=== PATIENT | female | born 2000 ===

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

== ENCOUNTER 2021-08-01 19:24 | Outpatient (CLI) | payer SELFPAY ==
[2021-08-01] MEDS ORDERED: LACTATED RINGERS 1,000 ML IV ONE (20:16)
[2021-08-01 21:14] LABS: Basophils % (Auto) 0.3 % (0.0-1.8); Eosinophils # (Auto) 0.1 K/mm3 (0.0-0.4); Hematocrit 33.1 % (30.3-42.9); Hemoglobin 11.3 gm/dl (10.1-14.3); Lymphocytes # (Auto) 1.8 K/mm3 (1.2-5.4); Lymphocytes % (Auto) 14.8 % (13.4-35.0); Mean Corpuscular HGB Conc 34 % (30-34); Mean Corpuscular Volume 86 fl (79-97); Monocytes # (Auto) 0.5 K/mm3 (0.0-0.8); Monocytes % (Auto) 4.2 % (0.0-7.3); Platelet Count 269 K/mm3 (140-440); Red Blood Count 3.85 M/mm3 (3.65-5.03); Red Cell Distribution Width 16.8 % (13.2-15.2)
[2021-08-01 21:31] LABS: Alanine Aminotransferase 7 units/L (7-56); Albumin 3.8 g/dL (3.9-5); Blood Urea Nitrogen 8 mg/dL (7-17); Calcium 9.4 mg/dL (8.4-10.2); Hemolysis Index 3
[2021-08-01 21:45] LABS: BUN/Creatinine Ratio 20; Bilirubin,Urine NEG (Negative); Blood,Urine NEG (Negative); Color,Urine Yellow (Yellow); Protein,Urine <15 mg/dL mg/dL (Negative); Urobilinogen,Urine < 2.0 mg/dL (<2.0)
--- NOTE | 2021-08-01 23:33 | Ultrasound Report ---
ULTRASOUND OBSTETRIC LIMITED ULTRASOUND BIOPHYSICAL PROFILE INDICATION / CLINICAL INFORMATION: Evaluate well-being. COMPARISON: None available. FINDINGS: BREATHING MOVEMENT = 2 GROSS BODY MOVEMENT = 2 TONE = 2 QUALITATIVE AMNIOTIC FLUID VOLUME = 2 TOTAL BIOPHYSICAL SCORE = 8/8 AMNIOTIC FLUID INDEX (cm) = 8.6 PRESENTATION: Cephalic. HEART RATE (beats per minute): 133 ADDITIONAL FINDINGS: None. IMPRESSION: 1. Biophysical Score = 8/8 2. No significant abnormality. Signer Name: Liu Smith MD Signed: 08/01/2021 11:29 PM Workstation Name: [id number]
[2021-08-01 23:51] VITALS: BP 121/58
== END 2021-08-02 00:07 | disposition home or self-care (01) ==
LOC: TRG 19:24 → APU 19:27 → TRG 08-02 00:07
PROVIDERS: ATTEND Obstetrics & Gynecology
DX: O26.893 Other specified pregnancy related conditions, third trimester (principal); R51.9 Headache, unspecified; H53.8 Other visual disturbances; O99.513 Diseases of the respiratory system complicating pregnancy, third trimester; J45.909 Unspecified asthma, uncomplicated; Z3A.34 34 weeks gestation of pregnancy
CPT/HCPCS: 36415; 59025; 76816; 76819; 80053; 81001; 83615; 84550; 85025; 96360; J7120; 76815

== ENCOUNTER 2021-08-14 02:31 | Inpatient (IN) | payer SELFPAY ==
[2021-08-14] MEDS ORDERED: CARBOPROST TROMETHAMINE 250 MCG/1 ML INJ IM PRN (03:30)
[2021-08-14] MEDS ORDERED: METHYLERGONOVINE MALEATE 0.2 MG/ML VIAL IM PRN (03:30)
[2021-08-14] MEDS ORDERED: BUTORPHANOL 2 MG/1 ML INJ IV PRN (03:30)
[2021-08-14] MEDS ORDERED: ePHEDrine SULFATE 50 MG/1 ML INJ IV PRN ×2 (03:30→08:30)
[2021-08-14] MEDS ORDERED: fentaNYL 100 MCG/2 ML INJ IV PRN (03:30)
[2021-08-14] MEDS ORDERED: ACETAMINOPHEN 325 MG TAB PO PRN (03:30)
[2021-08-14] MEDS ORDERED: TERBUTALINE 1 MG/1 ML INJ SUB-Q PRN (03:30)
[2021-08-14] MEDS ORDERED: LACTATED RINGERS 1,000 ML IV SCH (03:30)
[2021-08-14] MEDS ORDERED: miSOPROStol 25 MCG TAB PO SCH (04:00)
[2021-08-14 04:52] LABS: Hematocrit 37.1 % (30.3-42.9); Mean Corpuscular HGB Conc 33 % (30-34); Mean Corpuscular Volume 86 fl (79-97); Platelet Count 343 K/mm3 (140-440); Red Blood Count 4.32 M/mm3 (3.65-5.03); Red Cell Distribution Width 16.6 % (13.2-15.2)
--- NOTE | 2021-08-14 05:50 | Ultrasound Report ---
US OB BPP wo non-stress, US OB follow up INDICATION / CLINICAL INFORMATION: Post due date, Abdominal pain COMPARISON: Limited OB ultrasound 11/01/2021 TECHNIQUE: Using a transcutaneous probe, multiple grayscale, color Doppler, and spectral Doppler imag es of the uterus and fetus were captured and stored. Additional biophysical profile was performed wit h measurement of multiple biophysical variables including respiratory motion, motion, fet al posturing tone, and qualitative amniotic fluid volume. FINDINGS: BREATHING MOVEMENT = 0 GROSS BODY MOVEMENT = 2 TONE = 0 QUALITATIVE AMNIOTIC FLUID VOLUME = 2 TOTAL BIOPHYSICAL SCORE = 4/8 Single cephalic fetus with heart rate of 125 bpm is demonstrated. The amniotic fluid is within normal limits at 520.5 cm. Posterior grade 2 placenta is demonstrated. Biparietal Diameter = 8.69 cm = 35, 1 weeks, days Head Circumference = 33.09 cm = 37, 5 weeks, days Abdominal Circumference = 36.37 cm = 40, 2 weeks, days Femur Length = 7.46 cm = 38, 1 weeks, days Average Ultrasound Age (AUA) = 37, 6 weeks, days. EDC 08/29/2021. Clinical estimated gestational age is 40 weeks 2 days, EDC 08/12/2021. Estimated weight = 3606 g, 45% growth percentile.. IMPRESSION: 1 Single living fetus as detailed. 2. biophysical profile score of 4/8. Signer Name: Angel Carreon II, MD Signed: 08/14/2021 5:46 AM Workstation Name: [id number]
[2021-08-14] MEDS: OXYTOCIN DRIP 30 UNITS/500 ML BAG IV SCH ×2 (06:50→22:18)
--- NOTE | 2021-08-14 07:03 | History and Physical Report ---
History of Present Illness Date of examination: 08/14/21 Date of admission: 08/14/21 03:37 Chief complaint: Contractions History of present illness: 21-year-old primigravida at 40-2/7 weeks gestation presents OB triage reporting regular and painful uterine contractions occurring every 5 minutes. There is no vaginal bleeding. There is no leakage of fluid. There is good movement. In OB triage, cervical exam was 4 cm dilated. As such, this patient was admitted to labor and delivery in early labor. Past History Past Medical History: asthma, other (Rubella nonimmune) Past Surgical History: no surgical history Family/Genetic History: other (Thyroid disorder, asthma) Social history: no significant social history - Obstetrical History Expected Date of Delivery: 08/12/21 Actual Gestation: 40 Week(s) 2 Day(s) : 1 Para: 0 Medications and Allergies Allergies Allergy/AdvReac Type Severity Reaction Status Date / Time No Known Allergies Allergy Unverified 06/18/18 22:16 Home Medications Medication Instructions Recorded Confirmed Last Taken Type Doxylamine Succinate/Vit B6 1 each PO QHS PRN #30 tablet.dr 12/23/20 Unknown Rx [Beth Dr 10-10 mg Tablet] Mary Root [Mary] 250 mg PO QID PRN #30 capsule 12/23/20 Unknown Rx Multivitamin with Folic Acid [[facility] 400 mcg PO QDAY #30 tablet 12/23/20 Unknown Rx One Daily Essential Tablet] Active Meds: Active Medications Acetaminophen (Acetaminophen 325 Mg Tab) 650 mg PO Q4H PRN PRN Reason: Pain, Mild (1-3) Butorphanol Tartrate (Butorphanol 2 Mg/1 Ml Inj) 1 mg IV Q2H PRN PRN Reason: Pain, Moderate(4-6) LABOR PAIN Carboprost Tromethamine (Carboprost Tromethamine 250 Mcg/1 Ml Inj) 250 mcg IM ONCE PRN PRN Reason: Uterine Bleeding Ephedrine Sulfate (Ephedrine Sulfate 50 Mg/1 Ml Inj) 10 mg IV Q2M PRN PRN Reason: Hypotension Fentanyl (Fentanyl 100 Mcg/2 Ml Inj) 100 mcg IV Q2H PRN PRN Reason: Pain,Severe (7-10) LABOR PAIN Lactated Ringer's (Lactated Ringers) 1,000 mls @ 125 mls/hr IV DIRECT MARIO Last Admin: 08/14/21 06:04 Dose: 999 mls/hr Oxytocin/Sodium Chloride (Pitocin/Ns 30 Unit/500ml) 30 units in 500 mls @ 40 mls/hr IV TITR MARIO; Protocol Last Admin: 08/14/21 06:50 Dose: 2 ml/hr, 2 mls/hr Methylergonovine Maleate (Methylergonovine Maleate 0.2 Mg/Ml Vial) 0.2 mg IM ONCE PRN PRN Reason: Uterine Bleeding Terbutaline Sulfate (Terbutaline 1 Mg/1 Ml Inj) 0.25 mg SUB-Q ONCE PRN PRN Reason: Hyperstimulation/Hypertonicity Review of Systems All systems: negative - Vital Signs Vital signs: Vital Signs Pulse Pulse Ox 102 H 98 08/14/21 02:52 08/14/21 02:52 Temp Pulse Resp BP Pulse Ox 98.3 F 93 H 112/65 97 08/14/21 06:37 08/14/21 06:56 08/14/21 06:44 08/14/21 06:56 - Physical Exam Breasts: Positive: normal Cardiovascular: Regular rate Lungs: Positive: Normal air movement Abdomen: Positive: normal appearance Genitourinary (Female): Positive: normal external genitalia, normal perenium Vulva: both: normal Vagina: Positive: normal moisture Uterus: Positive: enlarged Adnexa: both: normal Anus/Rectum: Positive: normal perianal skin Extremities: Positive: normal Deep Tendon Reflex Grade: Normal +2 - Obstetrical FHR: category 1 Uterine Contraction Monitor Mode: External Cervical Dilatation: 4 Cervical Effacement Percentage: 80 station: -1 Uterine Contraction Frequency (min): 5 Uterine Contraction Pattern: Regular Uterine Tone Measurement Phase: Contraction Uterine Contraction Intensity: Moderate Results Result Diagrams: 08/14/21 04:16 Abnormal lab results 08/14/21 Range/Units 04:16 WBC 12.4 H (4.5-11.0) K/mm3 RDW 16.6 H (13.2-15.2) % All other labs normal. Ultrasound: report reviewed (BPP= 06/20 (-2 Breathing, -2 Tone)), image reviewed (OB Ultrasound Limited= SLIUP. Vertex. Posterior placenta. EFW= 3606 g (45th %-ile). RYAN=20.5.) Assessment and Plan - Patient Problems (1) 40 weeks gestation of Current Visit: Yes Status: Acute Plan to address problem: care is up-to-date at [facility] . 1 hour glucose tolerance test is within normal limits. She is GBS negative. (2) Postmaturity , 40-42 weeks gestation Current Visit: Yes Status: Acute Plan to address problem: The patient is past her due date. Biophysical profile is 4/8. Plan is to augment labor. (3) Spontaneous onset of labor Current Visit: Yes Status: Acute Plan to address problem: Admit to labor and delivery. Augment with artificial rupture membranes and Pitocin. Epidural as needed. Anticipate normal spontaneous vaginal delivery. (4) Asthma affecting in third trimester Current Visit: Yes Status: Acute Plan to address problem: No Hemabate .
[2021-08-14] MEDS ORDERED: fentaNYL-BUPIV 2 MCG/ML-0.125% 200 MCG/100 ML BAG EPIDURAL SCH (07:30)
[2021-08-14] MEDS ORDERED: fentaNYL-BUPIV 2 MCG/ML-0.125% 200 MCG/100 ML BAG EPIDURAL ONE (07:32)
--- NOTE | 2021-08-14 07:41 | Anesthesia Consultation ---
Anesthesia Consult and Med Hx Date of service: 08/14/21 - Airway Anesthetic Teeth Evaluation: Good ROM Head & Neck: Adequate Mental/Hyoid Distance: Adequate Mallampati Class: Class II Intubation Access Assessment: Probably Good - Pre-Operative Health Status ASA Pre-Surgery Classification: ASA2 Proposed Anesthetic Plan: Epidural, Spinal - Pulmonary Hx Asthma: Yes COPD: No Hx Pneumonia: No - Cardiovascular System Hx Hypertension: No - Central Nervous System Hx Seizures: No Hx Psychiatric Problems: No - Endocrine Hx Renal Disease: No Hx End Stage Renal Disease: No Hx Hypothyroidism: No Hx Hyperthyroidism: No - Hematic Hx Anemia: No Hx Sickle Cell Disease: No - Other Systems Hx Alcohol Use: No
--- NOTE | 2021-08-14 07:58 | Progress Note ---
Labor Epidural - Labor Epidural Start Time: 07:10 Stop Time: 07:28 Performed by:: ANTONIO WARE Procedure: Patient is requesting epidural for labor and pain. H&P, labs were reviewed. Patient IDed, all questions and concerns were answered, and consent was signed. Timeout was performed at bedside. Patient in sitting position. Sterile prep and drape was performed. 3ml of 1% lidocaine skin wheal at L[3]- L [4]. 17- gauge Tuohy epidural needle was advanced to loss of resistance with saline technique cm. 25G spinal needle introduced through epidural needle to the spinal space. Clear CSF. injected .1ml of Precedex in the spinal space. Negative CSF negative blood. Epidural catheter advanced to [15] centimeters. [Negative] Aspiration, test dose 3cc 1.5% Lidocaine with epi - negative. Sterile dressing applied. Patient tolerated procedure.
[2021-08-14] MEDS ORDERED: NALOXONE 0.4 MG/1 ML INJ IV PRN (08:30)
--- NOTE | 2021-08-14 11:31 | Event Note ---
Date: 08/14/21 pt evaluated and comfortable and asleep with epidural. Pt is easily FHR category I. Pelvic 5/8-/-2 and FSE not working per nurse report. The external FHR monitor effective and I will hold on replacing FSE at this time. IUPC with inadequate contractions. Hopeful for vaginal delivery.
--- NOTE | 2021-08-14 16:32 | Event Note ---
Date: 08/14/21 FOB came to desk stating pt feeling a lot pelvic pressure and wants to push. Pelvic 9.5/100/-1 and bloody mucoid discharge seen. IUPC remains with clear fluid. Will restart pitocin that was turned off for a short time. FHR remains with category I FHR. Expect
[2021-08-14] MEDS ORDERED: MINERAL OIL 30 ML ORAL LIQD ONE (17:22)
[2021-08-14] MEDS ORDERED: LIDOCAINE MPF (2%) 20 MG/1 ML VIAL 5 ML ONE (19:11)
--- NOTE | 2021-08-14 21:44 | Event Note ---
Date: 08/14/21 nurse called me to evaluate pt at 8:20pm who was allowed to labor down. Pt stating she felt the baby was right there and could not hold it in anymore, she was allowed to push however pelvic unchanged. Sign out given to Dr. Schulz earlier and he will decide for treatment plan for the patient. FHR category I and contractions inadequate on pitocin and pt with epidural. Pt may be redosed for improved comfort and nurse already received those instructions from Dr. Scuhlz.
[2021-08-14] MEDS ORDERED: diphenhydrAMINE 50 MG/ML VIAL IV ONE (22:04)
[2021-08-15] MEDS ORDERED: miSOPROStol 200 MCG TAB ONE (05:50)
[2021-08-15] MEDS ORDERED: CARBOPROST TROMETHAMINE 250 MCG/1 ML INJ IM ONE ×2 (05:53→05:55)
[2021-08-15] MEDS ORDERED: miSOPROStol 200 MCG TAB PO ONE (06:00)
[2021-08-15] MEDS ORDERED: LIDOCAINE (2%) 20 MG/1 ML VIAL 20 ML MDV INFILTRATI ONE (06:28)
[2021-08-15] MEDS ORDERED: HYDROcodone/ACETAMINOPHEN 5-325 MG TAB PO PRN (06:30)
[2021-08-15] MEDS ORDERED: ACETAMINOPHEN 325 MG TAB PO PRN (06:30)
[2021-08-15] MEDS ORDERED: WITCH HAZEL/ GLYCERIN PAD TP PRN (06:30)
[2021-08-15] MEDS ORDERED: MAGNESIUM HYDROXIDE (MOM) ORAL LIQD UDC PO PRN (06:30)
[2021-08-15] MEDS ORDERED: LANOLIN/ZINC/DIMETHICONE (LANSINOH) 7 GM TP PRN (06:30)
[2021-08-15] MEDS ORDERED: BENZOCAINE/MENTHOL 20/0.5% TOP SPRAY 56 GM TP PRN (06:30)
--- NOTE | 2021-08-15 06:43 | Procedure Note ---
OB Delivery Note - Delivery Date of Delivery: 08/15/21 Surgeon: SULY REIS [place] Laborer: ALICE ROBERT Estimated blood loss: 500cc - Vaginal Delivery presentation: vertex Delivery position: OA Delivery induction: none Delivery augmentation: rupture of membranes, pitocin Delivery monitor: external FHT, external uterine, internal FHT, internal uterine Route of delivery: Delivery placenta: manual Delivery cord: nuchal cord, 3 umbilical vessels Episiotomy: none Delivery laceration: vaginal side wall, other (Right labial laceration) Delivery repair: vicryl, other (Right labial laceration repaired with 4-0 Monocryl. Vaginal lacerations repaired with 2-0 Vicryl and 3-0 Vicryl.) Anesthesia: local, epidural Delivery comments: On the evening of August 14, 2021, bedside ultrasound confirmed that the fetus was in the occiput posterior position. Position changes ensued including "flying cow girl" and "hands and knees" positions. Patient progressed to 10/100%/+1. head position was noted to be occiput anterior at that time. Patient pushed and produce the head. Nuchal cord x1 was manually reduced. The remainder the was delivered atraumatically. was bulb suctioned. The umbilical cord was clamped and cut. The was handed off to the waiting nursery team. Cord gases were obtained. Cord blood was obtained. Placenta was noted to be retained. Cytotec 400 mcg was administered sublingually and Hemabate x1 was administered intramuscularly. Placenta was manually extracted thereafter. Right labia minora laceration was was repaired with an interrupted inverted 3-0 Vicryl suture that was deep and buried to decrease tension on the edges. Remainder of the right labia minora laceration was repaired with 4-0 Monocryl in a running fashion with excellent hemostasis. Remaining vaginal wall lacerations were repaired with 2-0 Vicryl and 3-0 Vicryl. A vaginal sweep was performed. No retained instruments or sponges were noted. The patient taught the procedure well. - Infant A at 1 minute: 6 (Cord gases are reported and in the chart.) at 5 minutes: 9 Gender: Female
[2021-08-15] MEDS ORDERED: ONDANSETRON 4 MG/2 ML INJ ONE (08:26)
[2021-08-15] MEDS ORDERED: LOPERAMIDE 2 MG CAP PO PRN (09:00)
[2021-08-15] MEDS: IBUPROFEN 800 MG TAB PO SCH (12:39)
[2021-08-15] MEDS: DOCUSATE SODIUM 100 MG CAP PO SCH (12:39)
--- NOTE | 2021-08-15 16:05 | Post Anesthesia Evaluation ---
- Post Anesthesia Evaluation Patient Participated: Yes Airway Patent: Yes Stable Respiratory Function: Yes Nausea/Vomiting: No Temp > 96.8F: Yes Pain Manageable: Yes Adequeate Hydration: Yes Anesthesia Complications: No Block Receding Appropriately: Yes Patient on Ventilator: No Other Comments: Patient has ambulated, consumed solids and/or fluids. No pain, redness, or swelling at site. Block is receding appropriately. Pt has no complaints or questions regarding anesthesia.
[2021-08-16] MEDS: IBUPROFEN 800 MG TAB PO SCH ×2 (00:49→06:13)
[2021-08-16] MEDS: DOCUSATE SODIUM 100 MG CAP PO SCH (00:49)
--- NOTE | 2021-08-16 08:07 | Progress Note ---
Assessment and Plan A: PPD # 1 - stable P: Discharge home today Discharge instructions given Subjective - Subjective Date of service: 08/16/21 Patient reports: appetite normal [place]: doing well Objective - Vital Signs Latest vital signs: Vital Signs Temp Pulse Resp BP BP Pulse Ox Pulse Ox 08/16/21 01:07 98.3 F 92 H 20 120/54 93 08/15/21 20:20 97 08/15/21 17:27 97.8 F 87 18 94/56 97 08/15/21 09:43 96 08/15/21 09:33 99.3 F 81 14 112/45 96 08/15/21 08:23 97 H 94 08/15/21 08:21 78 96 08/15/21 08:18 14 08/15/21 08:16 102 H 97 08/15/21 08:11 95 H 98 08/15/21 08:06 78 97 Intake and Output 08/15/21 08/16/21 08/16/21 22:59 06:59 14:59 Intake Total 480 Output Total 400 Balance 80 Intake: Oral 480 Output: Urine 400 Void 400 Other: Total, Intake Amount 480 Total, Output Amount 400 # Voids Void 1 1 - Exam Breasts: Present: deferred Cardiovascular: Present: Regular rate Lungs: Present: Clear to auscultation Abdomen: Present: soft Vulva: both: normal Uterus: Present: fundal height below umbilicus Extremities: Present: normal Deep Tendon Reflex Grade: Normal +2
--- NOTE | 2021-08-16 08:08 | Discharge Summary ---
Providers - Providers Date of Admission: 08/14/21 03:37 Date of discharge: 08/16/21 Attending physician: SULY REIS MD Primary care physician: PHOEBE FIORE MD Hospitalization Reason for admission: active labor Delivery: Laceration: other (labial) Other procedures: none complications: none Discharge diagnosis: IUP at term delivered [place] baby: female Condition at discharge: Good Disposition: 01 HOME / SELF CARE / HOMELESS Plan - Provider Discharge Summary Activity: no sex for 6 weeks Diet: routine Instructions: routine Additional instructions: [] Smoking cessation referral if applicable(refer to patient education folder for contact #) [] Refer to [facility]'s [facility] Booklet Call your doctor immediately for: * Fever > 100.5 * Heavy vaginal bleeding ( >1 pad per hour) * Severe persistent headache * Shortness of breath * Reddened, hot, painful area to leg or breast * Drainage or odor from incision. * Keep incision clean and dry at all times and follow doctor's instructions regarding bathing/showering - Follow up plan Follow up: PHOEBE FIORE MD [Primary Care Provider] - 6 Weeks
[2021-08-16 10:09] LABS: Hematocrit 28.5 % (30.3-42.9); Hemoglobin 9.3 gm/dl (10.1-14.3); Mean Corpuscular HGB Conc 33 % (30-34); Mean Corpuscular Volume 87 fl (79-97); Platelet Count 235 K/mm3 (140-440); Red Blood Count 3.27 M/mm3 (3.65-5.03); Red Cell Distribution Width 17.1 % (13.2-15.2)
[2021-08-16 16:36] VITALS: BP 128/78
== END 2021-08-16 20:40 | disposition home or self-care (01) | DRG 807 ==
LOC: TRG 02:31 → APU 02:32 → TRG 03:30 → LD 03:37 → OB 08-15 09:01
PROVIDERS: ADMIT Obstetrics & Gynecology Gynecology; ATTEND Obstetrics & Gynecology Gynecology
PROC: 10E0XZZ Delivery of Products of Conception, External Approach (ICD-10-PCS; principal; 2021-08-15)
PROC: 0KQM0ZZ Repair Perineum Muscle, Open Approach (ICD-10-PCS; 2021-08-15)
PROC: 0UQMXZZ Repair Vulva, External Approach (ICD-10-PCS; 2021-08-15)
PROC: 3E0R3BZ Introduction of Anesthetic Agent into Spinal Canal, Percutaneous Approach (ICD-10-PCS; 2021-08-15)
PROC: 00HU33Z Insertion of Infusion Device into Spinal Canal, Percutaneous Approach (ICD-10-PCS; 2021-08-15)
DX: O69.81X0 Labor and delivery complicated by cord around neck, without compression, not applicable or unspecified (principal); Z37.0 Single live birth; O48.0 Post-term pregnancy; Z20.822 Contact with and (suspected) exposure to COVID-19; J45.909 Unspecified asthma, uncomplicated; O99.52 Diseases of the respiratory system complicating childbirth; Z3A.40 40 weeks gestation of pregnancy; Z82.5 Family history of asthma and other chronic lower respiratory diseases; O70.0 First degree perineal laceration during delivery; O64.0XX0 Obstructed labor due to incomplete rotation of fetal head, not applicable or unspecified
CPT/HCPCS: 36415; 76816; 76819; 85027; 86592; 86850; 86900; 86901; 88307; 99211; G0378; J3490; G0463; J1200; J2405; J2590; J7120; U0003